=== PATIENT | male | born 1970 | race Caucasian/White ===

== ENCOUNTER → 2017-04-16 | Outpatient (CLI) | payer OTHER ==
[~2017-04-16] MED LIST: CYCLOBENZAPRINE10 MG PO; NAPROXEN500 MG PO; PANTOPRAZOLE SO40 MG PO; PREDNISONE20 M1 PO
== END | disposition home or self-care (01) ==
LOC: RAD 09:37
DX: M54.42 Lumbago with sciatica, left side (principal); Z91.81 History of falling

== ENCOUNTER 2017-04-17 10:44 | Emergency (ER) | payer OTHER ==
[~2017-04-17] VITALS: Ht 172.7 cm; Wt 98.9 kg
[2017-04-17] MEDS ORDERED: CYCLOBENZAPRINE10 MG PO (10:54)
[2017-04-17] MEDS ORDERED: NAPROXEN500 MG PO (10:54)
[2017-04-17] MEDS ORDERED: PREDNISONE20 M1 PO (10:54)
[2017-04-17] MEDS ORDERED: PANTOPRAZOLE SO40 MG PO (10:55)
== END 2017-04-17 14:04 | disposition home or self-care (01) ==
LOC: ED 10:44
DX: M16.0 Bilateral primary osteoarthritis of hip (principal); G89.29 Other chronic pain; M54.5 Low back pain; Z79.899 Other long term (current) drug therapy

== ENCOUNTER → 2018-10-31 | Outpatient (CLI) | payer OTHER ==
[2018-10-31 17:44] LABS: BASO # 0.1 10*3/uL (0.0-0.1); BASO % 0.9 % (0.0-1.0); EOS # 0.2 10*3/uL (0.0-0.4); EOS % 2.2 % (1.0-4.0); LYMPH # 1.8 10*3/uL (1.3-4.4); LYMPH % 27.2 % (27.0-41.0); MEAN CELL VOLUME 82.4 fl (80.0-94.0); MEAN CORPUSCULAR HGB 29.3 pg (27.0-31.0); MEAN CORPUSCULAR HGB CONC 35.6 g/dl (33.0-37.0); MEAN PLATELET VOLUME 9.4 fl (9.6-12.3); MONO # 0.6 10*3/uL (0.1-1.0); MONO % 8.7 % (3.0-9.0); NEUT # 4.1 10*3/uL (2.3-7.9); NEUT % 60.7 % (47.0-73.0); PLATELET COUNT AUTOMATED 192 10*3/uL (130-400); RED BLOOD COUNT 5.46 10*6/uL (4.50-5.90); RED CELL DISTRI WIDTH 12.3 % (0-14.5); WHITE BLOOD COUNT 6.8 10*3/uL (4.8-10.8)
[2018-10-31 18:00] LABS: ALKALINE PHOSPHATASE 130 U/L (45-117); BUN 18 mg/dl (7-24); CHLORIDE 105 mmol/L (98-107); CREATININE 1.12 mg/dL (0.70-1.30); POTASSIUM 3.7 mmol/L (3.5-5.1); SGOT/AST 31 IU/L (3-35); SGPT/ALT 49 U/L (12-78); SODIUM 141 mmol/L (136-145); TOTAL PROTEIN 6.8 gm/dL (6.4-8.2); URIC ACID 5.1 mg/dL (3.5-7.2)
[2018-10-31 18:06] LABS: FREE T4 1.02 ng/dl (0.76-1.46)
[2018-11-01 08:12] LABS: RHEUMATOID ARTHRITIS FACTOR <10.0 IU/mL (0.0-13.9)
[2018-11-01 12:06] LABS: ANTI-DSDNA ANTIBODIES 096339 <1 IU/mL (0-9)
[2018-11-01 22:04] LABS: CCP ANTIBODIES IGG/IGA 7 units (0-19)
== END | disposition home or self-care (01) ==
LOC: LAB 16:54
PROVIDERS: Internal Medicine
DX: M19.042 Primary osteoarthritis, left hand (principal); M79.672 Pain in left foot; M25.50 Pain in unspecified joint